=== PATIENT | male | born 1955 | race Caucasian/White ===

== ENCOUNTER → 2017-11-19 | Outpatient (CLI) | payer BC ==
[2017-11-19 12:49] LABS: BASO % 1.3 %; BASO ABS # 0.05 K/uL (0-0.2); EOS % 6.9 %; EOS ABS # 0.26 K/uL (0-0.5); HEMATOCRIT 38.2 % (42-52); HEMOGLOBIN 12.7 g/dL (14.0-18.0); IG# 0.01 K/uL (0.00-0.02); LYMPH % 22.7 %; LYMPH ABS # 0.85 K/uL (1.2-3.4); MEAN CELL VOLUME 92.9 fL (80-100); MEAN CORPUSCULAR HEMOGLOBIN 30.9 pg (25-34); MEAN CORPUSCULAR HGB CONC 33.2 g/dl (32-36); MONO % 8.8 %; MONO ABS # 0.33 K/uL (0.11-0.59); NEUT ABS # 2.25 K/uL (1.4-6.5); PLATELET COUNT 232 K/uL (130-400); RED CELL DISTRIBUTION WIDTH CV 12.9 % (11.5-14.5); RED CELL DISTRIBUTION WIDTH SD 43.7 fL (36.4-46.3); WHITE BLOOD COUNT 3.75 K/uL (4.8-10.8)
[2017-11-19 14:13] LABS: ALBUMIN 3.6 gm/dl (3.4-5.0); ALT/SGPT 20 U/L (12-78); BLOOD UREA NITROGEN 13 mg/dl (7-18); CALCIUM 8.8 mg/dl (8.5-10.1); CARBON DIOXIDE 24 mmol/L (21-32); CHOLESTEROL 185 mg/dl (0-200); CREATININE 1.13 mg/dl (0.60-1.40); GLUCOSE 89 mg/dl (70-99); POTASSIUM 4.5 mmol/L (3.5-5.1); SODIUM 135 mmol/L (136-145)
[2017-11-19 14:18] LABS: ALKALINE PHOSPHATASE 66 U/L (45-117); AST/SGOT 23 U/L (15-37); LDL CHOLESTEROL CALCULATED 82 mg/dl; TOTAL PROTEIN 7.4 gm/dl (6.4-8.2)
== END | disposition home or self-care (01) ==
LOC: C.LABMFLN 08:41
PROVIDERS: ATTEND Family Medicine
DX: K29.50 Unspecified chronic gastritis without bleeding (principal); E83.10 Disorder of iron metabolism, unspecified; I10 Essential (primary) hypertension; E78.5 Hyperlipidemia, unspecified

== ENCOUNTER → 2018-05-29 | Outpatient (CLI) | payer BC ==
[2018-05-29 13:14] LABS: ALBUMIN 3.5 gm/dl (3.4-5.0); ALKALINE PHOSPHATASE 63 U/L (45-117); ALT/SGPT 17 U/L (12-78); AST/SGOT 18 U/L (15-37); BLOOD UREA NITROGEN 14 mg/dl (7-18); CALCIUM 8.1 mg/dl (8.5-10.1); CARBON DIOXIDE 26 mmol/L (21-32); CHOLESTEROL 143 mg/dl (0-200); CREATININE 1.14 mg/dl (0.60-1.40); GLUCOSE 91 mg/dl (70-99); LDL CHOLESTEROL CALCULATED 49 mg/dl; POTASSIUM 4.1 mmol/L (3.5-5.1); SODIUM 125 mmol/L (136-145); TOTAL PROTEIN 6.7 gm/dl (6.4-8.2)
== END | disposition home or self-care (01) ==
LOC: C.LABMFLN 07:26
PROVIDERS: ATTEND Family Medicine
DX: I10 Essential (primary) hypertension (principal); E78.5 Hyperlipidemia, unspecified; K29.50 Unspecified chronic gastritis without bleeding; E83.10 Disorder of iron metabolism, unspecified; Z12.5 Encounter for screening for malignant neoplasm of prostate

== ENCOUNTER → 2018-05-31 | Outpatient (CLI) | payer BC ==
[2018-05-31 13:26] LABS: BLOOD UREA NITROGEN 13 mg/dl (7-18); CALCIUM 8.9 mg/dl (8.5-10.1); CARBON DIOXIDE 24 mmol/L (21-32); CREATININE 0.98 mg/dl (0.60-1.40); GLUCOSE 80 mg/dl (70-99); POTASSIUM 4.3 mmol/L (3.5-5.1); SODIUM 131 mmol/L (136-145)
== END | disposition home or self-care (01) ==
LOC: C.LABMFLN 09:09
PROVIDERS: ATTEND Family Medicine
DX: E83.10 Disorder of iron metabolism, unspecified (principal); E87.1 Hypo-osmolality and hyponatremia